=== PATIENT | female | born 1990 | race Two or more races ===

== ENCOUNTER 2017-02-12 16:31 | Emergency (ER) | payer OTHER ==
[~2017-02-12] VITALS: Ht 154.9 cm; Wt 78.9 kg
[2017-02-12 16:51] VITALS: BP 124/76
--- NOTE | 2017-02-12 16:58 | NUR ---
KATIA MILTON AT BEDSIDE FOR EVAL.
[2017-02-12 17:14] LABS: BASOPHILS # (AUTO) 0.1 /CMM (0.0-0.2); BASOPHILS % (AUTO) 0.4 % (0.0-2.0); EOSINOPHILS # (AUTO) 0.2 /CMM (0.0-0.7); EOSINOPHILS % (AUTO) 1.6 % (0.0-6.0); HEMATOCRIT 40 % (33-45); HEMOGLOBIN 13.3 g/dL (11.5-14.8); LYMPHOCYTES # (AUTO) 3.2 /CMM (0.8-4.8); LYMPHOCYTES % (AUTO) 23.7 % (20.0-44.0); MEAN CORPUSCULAR HEMOGLOBIN 30 PG (26.0-33.0); MEAN CORPUSCULAR HGB CONC 33 g/dl (31.0-36.0); MEAN CORPUSCULAR VOLUME 90 fL (82-100); MONOCYTES # (AUTO) 0.6 /CMM (0.1-1.30); MONOCYTES % (AUTO) 4.2 % (2.0-12.0); NEUTROPHILS # (AUTO) 9.3 /CMM (1.8-8.9); NEUTROPHILS % (AUTO) 70.1 % (43.0-81.0); PLATELET COUNT (AUTO) 294 /CMM (150-450); RDW COEFFICIENT OF VARIATION 12.2 (11.5-15.0); RED BLOOD CELL COUNT(AUTO) 4.45 MIL/uL (4.0-5.2); WHITE BLOOD COUNT (AUTO) 13.4 K/uL (4.3-11.0)
[2017-02-12 17:19] LABS: APPEARANCE,URINE Clear (CLEAR); BILIRUBIN,URINE Negative (NEGATIVE); BLOOD, URINE Moderate Ery/uL (NEGATIVE); COLOR,URINE Yellow (YELLOW); KETONES,URINE Negative (NEGATIVE); LEUKOCYTE ESTERASE ,URINE Trace (NEGATIVE); NITRITE, URINE Negative (NEGATIVE); PROTEIN,URINE Negative (NEGATIVE); UGLUCOSE Negative (NEGATIVE); UROBILINOGEN,URINE 0.2 EU/dL (0.2)
[2017-02-12 17:24] LABS: CALCIUM, SERUM 8.8 mg/dL (8.5-10.1); CREATININE 0.7 mg/dL (0.6-1.3); POTASSIUM 3.4 mmol/L (3.5-5.1)
[2017-02-12 17:43] LABS: PREGNANCY TEST URINE QUAL POSITIVE (NEGATIVE)
[2017-02-12 17:50] LABS: ALBUMIN 3.6 g/dL (3.4-5.0); BILIRUBIN,TOTAL 0.4 mg/dL (0.2-1.0); TOTAL PROTEIN, SERUM 7.5 g/dL (6.4-8.2)
[2017-02-12 18:04] LABS: ADD URINE CULTURE NO; BACTERIA,URINE None seen /HPF (None Seen); SQUAMOUS EPITHELIAL CELL,UR Moderate /HPF (None Seen)
--- NOTE | 2017-02-12 18:34 | NUR ---
MEDICALLY CLEARED. IVHL D/C'D. D/C IN STABLE CONDITION.
== END 2017-02-12 18:38 | disposition home or self-care (01) ==
LOC: ER 16:35
DX: O20.8 Other hemorrhage in early pregnancy (principal); O23.41 Unspecified infection of urinary tract in pregnancy, first trimester; Z3A.09 9 weeks gestation of pregnancy
CPT/HCPCS: 36415; 76856-TC; 80053-TC; 81000-TC; 83690-TC; 84702-TC; 84703-TC; 85025-TC; A4606; Z7610